=== PATIENT | female | born 1965 ===

== ENCOUNTER 2016-12-18 08:35 | Emergency (ER) | payer OTHER, SELFPAY ==
[2016-12-18 08:36] VITALS: BMI 34.6
[2016-12-18 08:51] VITALS: TEMP 98
--- NOTE | 2016-12-18 10:18 | C.PDOC ---
History Of Present Illness 51 yr old female presents to the ER with complaints of 3 week history of pain to the right buttock which radiates down to the right foot. Patient states the pain is worse when she sits and is better when she is laying down. States the pain is unrelieved with medications. Reports of similar pain in the past but states the pain was usually in the buttock and thighs and resolved on its own. Patient denies direct trauma or fall, back pain, abdominal pain, back pain, weakness or numbness. Time Seen by Provider: 12/18/16 09:08 Chief Complaint (Nursing): Lower Extremity Problem/Injury History Per: Patient History/Exam Limitations: no limitations Onset/Duration Of Symptoms: Persistent (3 weeks) Current Symptoms Are (Timing): Still Present Severity: Moderate Recent travel outside of the [place]: No Past Medical History Reviewed: Historical Data, Nursing Documentation, Vital Signs Vital Signs: Last Vital Signs Temp 98 F 12/18/16 08:50 Pulse 69 12/18/16 08:50 Resp 20 12/18/16 08:50 BP 139/86 12/18/16 08:50 Pulse Ox 99 12/18/16 10:23 - Medical History PMH: No Chronic Diseases, Gall Bladder Disease Surgical History: Cholecystectomy - [facility] Procedures RESECTION OF GALLBLADDER, PERCUTANEOUS ENDOSCOPIC APPROACH (08/12/15) Family History: States: No Known Family Hx - Social History Hx Tobacco Use: No Hx Alcohol Use: No Hx Substance Use: No Review Of Systems Except As Marked, All Systems Reviewed And Found Negative. Gastrointestinal: Negative for: Abdominal Pain Musculoskeletal: Positive for: Foot Pain (Right), Other ((+) Right buttock pain ). Negative for: Back Pain Neurological: Negative for: Weakness, Numbness Physical Exam - Physical Exam Appears: Non-toxic, No Acute Distress Skin: Warm, Dry, No Rash Head: Atraumatic, Normacephalic Neck: Normal, Supple Chest: Symmetrical Cardiovascular: No Rhythm Regular, Murmur Respiratory: No Rales, No Rhonchi Gastrointestinal/Abdominal: Normal Exam, Soft, No Tenderness, No Guarding, No Rebound Back: Straight Leg Raising (Pain with striaght leg raise on the right ) Extremity: No Deformity, Other ((+) Tenderness over the right buttock. ) Neurological/Psych: Oriented x3, Normal Speech, Normal Cognition, Normal Motor Gait: Steady ED Course And Treatment O2 Sat by Pulse Oximetry: 99 Medical Decision Making Medical Decision Making: PLAN: * Flexeril PO * Gabapentin PO * Toradol IM Pt feeling better post med, no indication of cord compression Plan op tx pcp F/U Disposition Counseled Patient/Family Regarding: Diagnosis, Need For Followup - Disposition Referrals: Cedric Cabello MD [Staff Provider] - Disposition: HOME/ ROUTINE Disposition Time: 10:26 Condition: GOOD Prescriptions: Cyclobenzaprine [Cyclobenzaprine HCl] 1 tab PO Q8H PRN #25 tab PRN Reason: Muscle Spasm Naproxen [Naprosyn] 1 tab PO BID PRN #25 tab PRN Reason: Pain Gabapentin [Neurontin] 1 cap PO TID #90 cap Instructions: Lumbar Radiculopathy (ED) Forms: Work Excuse Print Language: VATICAN CITIZEN - Clinical Impression Clinical Impression: Sciatic leg pain - Scribe Statement The provider has reviewed the documentation as recorded by the Pranavibdoreen Spencer Provider Attestation: All medical record entries made by the Pranavibdoreen were at my direction and personally dictated by me. I have reviewed the chart and agree that the record accurately reflects my personal performance of the history, physical exam, medical decision making, and the department course for this patient. I have also personally directed, reviewed, and agree with the discharge instructions and disposition.
[2016-12-18 10:46] VITALS: BP 125/72; PULSE 72; RESP 18; O2SAT 98
== END 2016-12-18 10:47 | disposition home or self-care (01) ==
LOC: C.ER 08:35
DX: M54.31 Sciatica, right side (principal)
CPT/HCPCS: 96372; 99284; J1885

== ENCOUNTER 2017-10-29 22:41 | Emergency (ER) | payer OTHER ==
[2017-10-29 22:54] VITALS: O2SAT 100
[2017-10-29] MEDS ORDERED: Sodium Chloride 0.9% 1,000 ML IV ONE (23:22)
[2017-10-29] MEDS ORDERED: Dexamethasone 4 mg/1 ml ONE (23:24)
[2017-10-29] MEDS ORDERED: Sodium Chloride 0.9% 1,000 ML ONE (23:24)
[2017-10-29] MEDS ORDERED: Acetaminophen 160 mg/5 ml UD PO ONE (23:42)
[2017-10-29] MEDS ORDERED: Acetaminophen 650mg/20.3ml solution UD ONE (23:45)
[2017-10-30] MEDS ORDERED: Amoxicillin 250 mg/5 ml Susp (100 ml) PO STA (00:12)
[2017-10-30 00:48] VITALS: BP 102/69; PULSE 82; RESP 18; TEMP 98.8
--- NOTE | 2017-10-30 00:48 | C.PDOC ---
History Of Present Illness 52 year old female, whose PMHx includes arthritis, presents to the ED for evaluation of a sore throat, difficulty swallowing and fever which began 3 days ago. She also reports having a headache today. Patient took 600mg Motrin at 1730 today without improvement. She denies ear pain, sick contacts. Time Seen by Provider: 10/29/17 23:22 Chief Complaint (Nursing): ENT Problem History Per: Patient History/Exam Limitations: None Onset/Duration Of Symptoms: Days (3) Current Symptoms Are (Timing): Still Present Past Medical History Reviewed: Historical Data, Nursing Documentation, Vital Signs Vital Signs: Last Vital Signs Temp 98.8 F 10/30/17 00:47 Pulse 82 10/30/17 00:47 Resp 18 10/30/17 00:47 BP 102/69 10/30/17 00:47 Pulse Ox 100 10/30/17 01:17 - Medical History PMH: Arthritis, Gall Bladder Disease Surgical History: Appendectomy, Cholecystectomy - [facility] Procedures RESECTION OF GALLBLADDER, PERCUTANEOUS ENDOSCOPIC APPROACH (08/12/15) Family History: States: Unknown Family Hx - Social History Hx Tobacco Use: No Hx Alcohol Use: No Hx Substance Use: No - Immunization History Hx Tetanus Toxoid Vaccination: No Hx Influenza Vaccination: No Hx Pneumococcal Vaccination: No Review Of Systems Constitutional: Positive for: Fever ENT: Positive for: Throat Pain. Negative for: Ear Pain Neurological: Positive for: Headache Physical Exam - Physical Exam Appears: Non-toxic, Other (uncomfortable, moaning in pain ) Skin: Normal Color, Warm, Dry Head: Atraumatic, Normacephalic Eye(s): bilateral: Normal Inspection Ear(s): Bilateral: Normal Nose: Normal, No Discharge Oral Mucosa: Moist Throat: Other (erythema and enlargement to bilateral tonsils with white exudates ) Neck: Supple Lymphatic: Other (tender cervical and submandibular lymphadenopathy ) Chest: Symmetrical, No Deformity, No Tenderness Cardiovascular: Rhythm Regular, No Murmur Respiratory: Normal Breath Sounds, No Rales, No Rhonchi, No Wheezing Extremity: Normal ROM, Capillary Refill (less than 2 seconds ) Neurological/Psych: Oriented x3, Normal Speech, Normal Cognition Gait: Steady ED Course And Treatment O2 Sat by Pulse Oximetry: 100 (on RA) Pulse Ox Interpretation: Normal Medical Decision Making Medical Decision Making: Progress: Amoxicillin PO, Decadron IVP, Toradol IVP, Tylenol PO, and IV Fluids administered. On reassessment, patient appears much better, states her headache has moistly resolved and is able to take sips of water. Patient was able to swallow tablets of Amoxiciilin. Will discharge home with Amoxicillin, Ibuprofen. Advised to f/u with PMD/clinic and ENT in 1-2 days. Disposition Counseled Patient/Family Regarding: Studies Performed, Diagnosis, Need For Followup, Rx Given - Disposition Referrals: Terry Leon MD [Staff Provider] - [facility] at [facility] [Outside] Disposition: HOME/ ROUTINE Disposition Time: 01:04 Condition: IMPROVED Additional Instructions: [place] antibiticos e ibuprofeno segn lo recetado. Jami grgaras con agua salada tibia varias veces al da. Mirtha ms lquidos en pequeas cantidades a la vez. Seguimiento con merry mota y con ENT Dr. Leon Take antibiotics and ibuprofen for as prescribed. Gargle with warm salty water several times a day. Drink increased fluids in small amounts at a time. Follow up with Medical clinic and with ENT Dr Leon [place]ito antibiticos e ibuprofeno segn lo recetado. Jami grgaras con agua salada tibia varias veces al da. Mirtha ms lquidos en pequeas cantidades a la vez. Seguimiento con merry mota y con ENT Dr Leon Prescriptions: Amoxicillin [Amoxil 500 mg Cap] 500 mg PO TID #21 cap Ibuprofen [Motrin] 600 mg PO TID #30 tab Instructions: Pharyngitis (ED) Forms: [employer] 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 - Scribe Statement The provider has reviewed the documentation as recorded by the Scribe (Zora Do) All medical record entries made by the Scribe were at my direction and personally dictated by me. I have reviewed the chart and agree that the record accurately reflects my personal performance of the history, physical exam, medical decision making, and the department course for this patient. I have also personally directed, reviewed, and agree with the discharge instructions and disposition.
== END 2017-10-30 01:10 | disposition home or self-care (01) ==
LOC: C.ER 22:41
DX: J02.9 Acute pharyngitis, unspecified (principal)
CPT/HCPCS: 96361; 96374; 96375; 99284; J1100; J1885; J7040

== ENCOUNTER 2018-01-01 07:48 | Emergency (ER) | payer OTHER ==
[2018-01-01 07:59] VITALS: BP 105/71; PULSE 106; RESP 20; TEMP 99.4; O2SAT 99
--- NOTE | 2018-01-01 08:19 | C.PDOC ---
History Of Present Illness 52 y/o female presents to ED with complaints of sore throat and body aches for 4 days. Patient states she took Motrin last at 3am and denies fever, chills, cough, chest pain, nausea, vomiting or any other complaints at this time. Time Seen by Provider: 01/01/18 07:51 Chief Complaint (Nursing): ENT Problem History Per: Patient History/Exam Limitations: None Onset/Duration Of Symptoms: Days Current Symptoms Are (Timing): Still Present Severity: Mild Past Medical History Reviewed: Historical Data, Nursing Documentation, Vital Signs Vital Signs: Last Vital Signs Temp 99.4 F 01/01/18 07:55 Pulse 106 H 01/01/18 07:55 Resp 20 01/01/18 07:55 BP 105/71 01/01/18 07:55 Pulse Ox 99 01/01/18 09:22 - Medical History PMH: Arthritis, Gall Bladder Disease Surgical History: Appendectomy, Cholecystectomy - [facility] Procedures RESECTION OF GALLBLADDER, PERCUTANEOUS ENDOSCOPIC APPROACH (08/12/15) Family History: States: No Known Family Hx - Social History Hx Tobacco Use: No Hx Alcohol Use: No Hx Substance Use: No - Immunization History Hx Tetanus Toxoid Vaccination: No Hx Influenza Vaccination: No Hx Pneumococcal Vaccination: No Review Of Systems Constitutional: Negative for: Fever, Chills ENT: Positive for: Throat Pain Cardiovascular: Negative for: Chest Pain Respiratory: Negative for: Cough Gastrointestinal: Negative for: Nausea, Vomiting, Diarrhea Skin: Negative for: Rash Physical Exam - Physical Exam Appears: Non-toxic, No Acute Distress Skin: Warm, Dry, No Rash Head: Atraumatic, Normacephalic Eye(s): bilateral: Normal Inspection Ear(s): Bilateral: Normal Oral Mucosa: Moist Tongue: Normal Appearing Lips: Normal Appearing Gingiva: Normal Appearing Throat: Normal, No Erythema, No Exudate Neck: Supple, Other (Tender anterior lymph nodes) Cardiovascular: Rhythm Regular Respiratory: Normal Breath Sounds, No Rales, No Rhonchi, No Wheezing Gastrointestinal/Abdominal: Soft, No Tenderness, No Guarding, No Rebound Extremity: Normal ROM, Capillary Refill (<2 seconds) Neurological/Psych: Oriented x3, Normal Speech Gait: Steady ED Course And Treatment O2 Sat by Pulse Oximetry: 99 (RA) Pulse Ox Interpretation: Normal Progress Note: Strep test ordered. Motrin administered. Strept (-). Treated with amoxil and decadron. On re-evaluation lungs clear, tolerating PO Disposition Counseled Patient/Family Regarding: Studies Performed, Diagnosis, Need For Followup, Rx Given - Disposition Referrals: [facility] [Outside] [facility] [employer] [facility] [Outside] Disposition: HOME/ ROUTINE Disposition Time: 09:20 Condition: STABLE Additional Instructions: Return to ED if any increase symptoms Prescriptions: Amoxicillin [Amoxil 500 mg Cap] 500 mg PO TID #21 cap Naproxen [Naprosyn] 1 tab PO BID PRN #25 tab PRN Reason: Pain Instructions: Viral Pharyngitis, Sore Throat in Adults, Cough, Runny Nose, and the Common Cold (DC) Forms: [employer] ([place] Citizen) Print Language: LITHUANIAN - POA Present On Arrival: None - Clinical Impression Clinical Impression: Pharyngitis - PA / STYLIST APPRENTICE / Resident Statement MD/DO has reviewed & agrees with the documentation as recorded. - Scribe Statement The provider has reviewed the documentation as recorded by the Pranavibdoreen Phan All medical record entries made by the Jake were at my direction and personally dictated by me. I have reviewed the chart and agree that the record accurately reflects my personal performance of the history, physical exam, medical decision making, and the department course for this patient. I have also personally directed, reviewed, and agree with the discharge instructions and disposition.
== END 2018-01-01 09:35 | disposition home or self-care (01) ==
LOC: C.ER 07:48
DX: J02.9 Acute pharyngitis, unspecified (principal)
CPT/HCPCS: 87070; 87430; 99283; J8540

== ENCOUNTER 2018-05-18 11:30 | Emergency (ER) | payer OTHER ==
[2018-05-18 11:53] VITALS: BMI 29.2
[2018-05-18 11:55] VITALS: BP 134/85; PULSE 94; RESP 18; TEMP 98.9; O2SAT 98
--- NOTE | 2018-05-18 13:39 | C.PDOC ---
History Of Present Illness 52 year old female presents to the emergency department with complaints of a sore throat and subjective fever that started 2 days ago. Otherwise patient denies any nausea, vomiting, headache, or weakness. Time Seen by Provider: 05/18/18 12:09 Chief Complaint (Nursing): ENT Problem History Per: Patient History/Exam Limitations: None Onset/Duration Of Symptoms: Days Current Symptoms Are (Timing): Still Present Past Medical History Reviewed: Historical Data, Nursing Documentation, Vital Signs Vital Signs: Last Vital Signs Temp 98.9 F 05/18/18 11:53 Pulse 94 H 05/18/18 11:53 Resp 18 05/18/18 11:53 BP 134/85 05/18/18 11:53 Pulse Ox 98 05/18/18 13:39 - Medical History PMH: Arthritis, Gall Bladder Disease Surgical History: Appendectomy, Cholecystectomy - [facility] Procedures RESECTION OF GALLBLADDER, PERCUTANEOUS ENDOSCOPIC APPROACH (08/12/15) Family History: States: No Known Family Hx - Social History Hx Tobacco Use: No Hx Alcohol Use: No Hx Substance Use: No - Immunization History Hx Tetanus Toxoid Vaccination: No Hx Influenza Vaccination: No Hx Pneumococcal Vaccination: No Review Of Systems Except As Marked, All Systems Reviewed And Found Negative. Constitutional: Positive for: Fever (subjective). Negative for: Chills ENT: Positive for: Other (Sore throat) Cardiovascular: Negative for: Chest Pain Respiratory: Negative for: Shortness of Breath Gastrointestinal: Negative for: Nausea, Vomiting Neurological: Negative for: Weakness, Numbness, Headache Physical Exam - Physical Exam Appears: Non-toxic, No Acute Distress Skin: Warm, Dry, No Rash Head: Atraumatic, Normacephalic Eye(s): bilateral: Normal Inspection Oral Mucosa: Moist Throat: No Exudate, Other (pharyngeal and tonsillar erythema; uvula midline; airway patent) Cardiovascular: Rhythm Regular Respiratory: Normal Breath Sounds Neurological/Psych: Oriented x3, Normal Speech, Normal Cognition Gait: Steady ED Course And Treatment O2 Sat by Pulse Oximetry: 98 (RA) Pulse Ox Interpretation: Normal Progress Note: Amoxil and Motrin were administered. On re-evaluation, patient is tolerating PO and is afebrile at this time. Patient will be discharged home and instructed to return for any worsening symptoms. Disposition - Disposition Referrals: [facility] at [facility] [Outside] Disposition: HOME/ ROUTINE Disposition Time: 13:37 Condition: GOOD Additional Instructions: Follow up with PMD within 1-2 days. Return to ED if feel worse. Prescriptions: Amoxicillin 500 mg PO Q8 #30 tab Ibuprofen [Motrin Tab] 600 mg PO Q8 #30 tab Instructions: Sore Throat in Adults Forms: [employer] (Persian) Print Language: AZERI - Clinical Impression Clinical Impression: Pharyngitis - PA / MERCHANDISE DIRECTOR / Resident Statement MD/DO has reviewed & agrees with the documentation as recorded. - Scribe Statement The provider has reviewed the documentation as recorded by the Scribe All medical record entries made by the Scribe were at my direction and personally dictated by me. I have reviewed the chart and agree that the record accurately reflects my personal performance of the history, physical exam, medical decision making, and the department course for this patient. I have also personally directed, reviewed, and agree with the discharge instructions and disposition.
== END 2018-05-18 13:54 | disposition home or self-care (01) ==
LOC: C.ER 11:30
DX: J02.9 Acute pharyngitis, unspecified (principal)

== ENCOUNTER 2018-09-16 03:05 | Emergency (ER) | payer OTHER ==
[2018-09-16 03:05] VITALS: BMI 37.4
[2018-09-16 03:13] VITALS: RESP 16; TEMP 98.4
[2018-09-16] MEDS ORDERED: Amoxicillin-Clav 500-125 mg Tab PO ONE (04:25)
--- NOTE | 2018-09-16 04:26 | C.PDOC ---
History Of Present Illness 53 year old female presents to the ED c/o sore throat associated with fever, productive cough, headache and body aches for the past 1 day. Patient reports she usually gets frequent throat infections. Patient denies rash, visual changes, nausea, vomit, dizziness, diarrhea, dysuria, back pain, recent travel, sick contacts. Time Seen by Provider: 09/16/18 03:28 Chief Complaint (Nursing): Cough, Cold, Congestion History Per: Patient History/Exam Limitations: no limitations Onset/Duration Of Symptoms: Days (1) Location Of Pain: Throat, Diffuse Myalgias, Headache Sick Contacts (Context): None Associated Symptoms: Fever, Sore Throat, Cough, Sputum, Myalgias Ear Symptoms: Bilateral: None Recent travel outside of the [place]: No Additional History Per: Patient Past Medical History Reviewed: Historical Data, Nursing Documentation, Vital Signs Vital Signs: Last Vital Signs Temp 98.4 F 09/16/18 03:11 Pulse 96 H 09/16/18 03:11 Resp 16 09/16/18 03:11 BP 144/94 H 09/16/18 03:11 Pulse Ox 99 09/16/18 03:11 - Medical History PMH: Arthritis, Gall Bladder Disease Surgical History: Appendectomy, Cholecystectomy - [facility] Procedures RESECTION OF GALLBLADDER, PERCUTANEOUS ENDOSCOPIC APPROACH (08/12/15) Family History: States: Unknown Family Hx - Social History Hx Tobacco Use: No Hx Alcohol Use: No Hx Substance Use: No - Immunization History Hx Tetanus Toxoid Vaccination: No Hx Influenza Vaccination: No Hx Pneumococcal Vaccination: No Review Of Systems Constitutional: Positive for: Malaise. Negative for: Fever, Chills Eyes: Negative for: Vision Change ENT: Positive for: Nose Congestion, Throat Pain. Negative for: Nose Discharge, Throat Swelling Cardiovascular: Negative for: Chest Pain, Palpitations Respiratory: Positive for: Cough, Sputum. Negative for: Shortness of Breath, Wheezing Gastrointestinal: Negative for: Nausea, Vomiting, Abdominal Pain Skin: Negative for: Rash Neurological: Positive for: Headache. Negative for: Numbness, Dizziness Physical Exam - Physical Exam Appears: Non-toxic, No Acute Distress Skin: Normal Color, Warm, Dry, No Rash Head: Atraumatic, Normacephalic Eye(s): bilateral: Normal Inspection, PERRL, EOMI Ear(s): Bilateral: Normal Oral Mucosa: Moist Throat: Erythema (+), No Exudate, No Drooling Neck: Normal ROM, Supple Lymphatic: Adenopathy (anterior cervical) Chest: Symmetrical Cardiovascular: Rhythm Regular, No Friction Rub Respiratory: Normal Breath Sounds, No Rales, No Rhonchi, No Wheezing Gastrointestinal/Abdominal: Soft, No Tenderness, No Guarding, No Rebound Back: Normal Inspection, No CVA Tenderness Extremity: Normal ROM, No Tenderness, No Swelling Neurological/Psych: Oriented x3, Normal Speech, Normal Cognition Gait: Steady ED Course And Treatment O2 Sat by Pulse Oximetry: 99 (ON RA) Pulse Ox Interpretation: Normal Medical Decision Making Medical Decision Making: Plan: * Amoxicillin 500 mg PO * Motrin 600 mg PO Disposition - Disposition Referrals: [facility] [Outside] Disposition: HOME/ ROUTINE Disposition Time: 05:13 Condition: STABLE Additional Instructions: Follow up with the medical doctor within 1-2 days, Return if worsened. Prescriptions: Amoxicillin [Amoxil 500 mg Cap] 500 mg PO TID #29 cap Ibuprofen [Motrin] 1 tab PO TID PRN #30 tab PRN Reason: Pain predniSONE [Prednisone] 20 mg PO BID #10 tab Instructions: Sore Throat, Adult (DC) Forms: [employer] (Indonesian) - Clinical Impression Clinical Impression: Pharyngitis - PA / EDUCATION RN / Resident Statement MD/DO has reviewed & agrees with the documentation as recorded. - Scribe Statement The provider has reviewed the documentation as recorded by the Scribe Ronnie Gomez All medical record entries made by the Scribe were at my direction and personally dictated by me. I have reviewed the chart and agree that the record accurately reflects my personal performance of the history, physical exam, medical decision making, and the department course for this patient. I have also personally directed, reviewed, and agree with the discharge instructions and disposition.
[2018-09-16 05:00] VITALS: BP 134/84; PULSE 84
[2018-09-16 05:14] VITALS: O2SAT 99
== END 2018-09-16 05:42 | disposition home or self-care (01) ==
LOC: C.ER 03:05
DX: J02.9 Acute pharyngitis, unspecified (principal)

== ENCOUNTER 2019-02-14 07:35 | Emergency (ER) | payer OTHER ==
[2019-02-14 07:35] VITALS: BMI 37.4
[2019-02-14 07:47] VITALS: BP 140/86; PULSE 61; RESP 17; TEMP 97.7; O2SAT 100
--- NOTE | 2019-02-14 08:08 | C.PDOC ---
History Of Present Illness 53 y/o female presents to ED complaining of pain and swelling on the right 3rd finger. States she she was making flan 5 days ago and it burned her. Patient has been applying neosporin but states the pain is getting worse. She denies any other complaints. Time Seen by Provider: 02/14/19 07:56 Chief Complaint (Nursing): Finger,Hand,&Wrist History Per: Patient History/Exam Limitations: no limitations Onset/Duration Of Symptoms: Days Current Symptoms Are (Timing): Still Present Past Medical History Reviewed: Historical Data, Nursing Documentation, Vital Signs Vital Signs: Last Vital Signs Temp 97.7 F 02/14/19 07:41 Pulse 61 02/14/19 07:41 Resp 17 02/14/19 07:41 BP 140/86 02/14/19 07:41 Pulse Ox 100 02/14/19 07:41 Primary Care Provider: FAMILY PROVIDER,NO - Medical History PMH: Arthritis, Gall Bladder Disease Surgical History: Appendectomy, Cholecystectomy - [facility] Procedures RESECTION OF GALLBLADDER, PERCUTANEOUS ENDOSCOPIC APPROACH (08/12/15) Family History: States: No Known Family Hx - Social History Hx Tobacco Use: No Hx Alcohol Use: No Hx Substance Use: No - Immunization History Hx Tetanus Toxoid Vaccination: No Hx Influenza Vaccination: Yes Hx Pneumococcal Vaccination: No Review Of Systems Constitutional: Negative for: Fever, Chills Musculoskeletal: Positive for: Other (Pain and swelling to the right 3rd finger) Skin: Negative for: Rash Neurological: Negative for: Weakness, Numbness Physical Exam - Physical Exam Appears: Non-toxic, No Acute Distress Skin: Warm, Dry Head: Normacephalic Eye(s): bilateral: Normal Inspection Oral Mucosa: Moist Neck: Supple Extremity: Capillary Refill (less than 2 seconds), Other (has 0.5cm partial thickness burn on the medial aspect of right 3rd finger, with mild surrounding erythema; no fluctuance or induration) Extremity: Bilateral: Normal Color And Temperature, Normal ROM Neurological/Psych: Oriented x3, Normal Speech, Normal Motor, Normal Sensation ED Course And Treatment O2 Sat by Pulse Oximetry: 100 (RA) Pulse Ox Interpretation: Normal Progress Note: Patient given keflex and ibuprofen. Will be discharged home. Instructed to follow up with PMD in 1-2 days and to return to the ER if symptoms worsen. Disposition Counseled Patient/Family Regarding: Diagnosis, Need For Followup, Rx Given - Disposition Referrals: [facility] at [facility] [Outside] Disposition: HOME/ ROUTINE Disposition Time: 08:05 Condition: STABLE Additional Instructions: FOLLOW UP WITH YOUR DOCTOR/CLINIC IN 1-2 DAYS USE MEDICATIONS DIRECTED RETURN TO EMERGENCY ROOM IF SYMPTOMS WORSEN SEGUIR CON SANZ MDICO / CLNICA EN 1-2 JOSEPH UTILICE [facility]ICAMENT[facility] [place] SE DIRIGE REGRESAR A LA ABEBE DE EMERGENCIA SI LOS SNTOMAS SE [place] AUNIDO Prescriptions: Cephalexin [Keflex] 500 mg PO BID #14 capsule Ibuprofen [Motrin Tab] 600 mg PO Q6 PRN #30 tab PRN Reason: fever/pain Instructions: Skin Burton (DC) Forms: [employer] (Maori) Print Language: PERSIAN - Clinical Impression Clinical Impression: Burn of finger, Cellulitis - Scribe Statement The provider has reviewed the documentation as recorded by the Scribe Desiree Curits Provider Attestation: All medical record entries made by the Scribe were at my direction and personally dictated by me. I have reviewed the chart and agree that the record accurately reflects my personal performance of the history, physical exam, medical decision making, and the department course for this patient. I have also personally directed, reviewed, and agree with the discharge instructions and disposition.
== END 2019-02-14 08:22 | disposition home or self-care (01) ==
LOC: C.ER 07:35
DX: T23.121A Burn of first degree of single right finger (nail) except thumb, initial encounter (principal); X19.XXXA Contact with other heat and hot substances, initial encounter; Y93.G3 Activity, cooking and baking; L03.011 Cellulitis of right finger